=== PATIENT | male | born 1960 | race Caucasian/White ===

== ENCOUNTER 2017-07-26 10:52 | Day surgery (SDC) | payer OTHER, BC ==
[~2017-07-26 10:52] MED LIST: ROCURONIUM 50 MG INJ
[2017-07-26] MEDS ORDERED: NEOSTIGMINE 3 MG/3 ML SYRINGE ×2 (14:34→15:13)
[2017-07-26] MEDS ORDERED: SUCCINYLCHOLINE CHLORIDE 100 MG/5 ML SYG IV (14:34)
[2017-07-26] MEDS ORDERED: GLYCOPYRROLATE 0.4 MG INJ ×3 (14:34→15:13)
[2017-07-26] MEDS ORDERED: MEPERIDINE 100 MG INJ (14:34)
[2017-07-26] MEDS ORDERED: ROCURONIUM 50 MG INJ (14:34)
[2017-07-26] MEDS ORDERED: PROPOFOL 20 ML (14:34)
[2017-07-26] MEDS ORDERED: CEFAZOLIN 1 GM INJ (15:13)
[2017-07-26] MEDS ORDERED: LIDOCAINE 100 MG SYRINGE (15:13)
[2017-07-26] MEDS: BUPIVACAINE 0.25% (MPF) 30 ML INJ (15:23)
[2017-07-26] MEDS: POLYMYXIN/BACITRACIN 1L IRRIG (15:23)
[2017-07-26] MEDS ORDERED: METOCLOPRAMIDE 10 MG INJ IV (15:30)
[2017-07-26] MEDS ORDERED: FENTAnyl 50 MCG/ML VIAL IV ×2 (15:30)
[2017-07-26] MEDS ORDERED: hydrALAzine 20 MG INJ IV (15:30)
[2017-07-26] MEDS ORDERED: OXYCODONE/ACETAMINOPHEN (5/325) TAB PO ×2 (15:30)
[2017-07-26] MEDS ORDERED: ONDANSETRON 4 MG INJ IV (15:30)
[2017-07-26] MEDS ORDERED: HYDROmorphONE (0.2 MG/ML) 10ML SYG IV ×3 (15:30)
[2017-07-26] MEDS ORDERED: DIPHENHYDRAMINE 50 MG INJ IV (15:30)
[2017-07-26] MEDS ORDERED: MEPERIDINE 25 MG INJ IV (15:30)
[2017-07-26] MEDS ORDERED: LABETALOL HCL 20MG INJ IV (15:30)
[2017-07-26] MEDS ORDERED: MIDAZOLAM 1 MG/ML 2 ML INJ IV (15:30)
[2017-07-26] MEDS ORDERED: EPHEDrine SULFATE 50 MG/5 ML SYG IV (15:30)
[2017-07-26] MEDS: FENTAnyl 50 MCG/ML VIAL IV (17:06)
== END 2017-07-26 18:54 | disposition home or self-care (01) ==
LOC: SDS 10:52
DX: M79.89 Other specified soft tissue disorders (principal); D49.59 Neoplasm of unspecified behavior of other genitourinary organ; K40.90 Unilateral inguinal hernia, without obstruction or gangrene, not specified as recurrent; N43.3 Hydrocele, unspecified; E66.9 Obesity, unspecified; Z68.33 Body mass index [BMI] 33.0-33.9, adult
CPT/HCPCS: 11424; 88302; 88307